=== PATIENT | female | born 1995 | race Caucasian/White ===

== ENCOUNTER 2018-05-12 10:30 | Emergency (ER) | payer OTHER ==
[2018-05-12 10:38] VITALS: BP 104/55
[2018-05-12] MEDS ORDERED: IBUPROFEN 600 MG TABLET PO ONE (10:45)
[2018-05-12] MEDS ORDERED: LIDOCAINE 2% VISCOUS SOLN 20 ML UDCUP PO ONE (10:45)
[2018-05-12] MEDS ORDERED: DEXAMETHASONE 4 MG TABLET PO ONE (10:48)
--- NOTE | 2018-05-12 10:51 | ER Document Report ---
ED ENT - General Chief Complaint: Sore Throat Stated Complaint: EAR PAIN Time Seen by Provider: 05/12/18 10:38 Mode of Arrival: Ambulatory Information source: Patient Notes: 22-year-old female presents to ED for the right-sided throat and ear pain. She also has swelling to her nasal mucosa with postnasal drainage. She said the pain started yesterday in her right ear and then has progressed down to her throat and right neck. The denies any fever. Patient is alert and oriented, speaking in full sentences, respirations regular and unlabored, and able to walk with a even steady gait. TRAVEL OUTSIDE OF THE [place] IN LAST 30 DAYS: No - HPI Patient complains to provider of: Ear problem, Throat problem Onset: Yesterday Onset/Duration: Gradual Quality of pain: Sharp, Other - Pressure Pain Level: 4 Context: Recent Illness Location of pain: Ears, Jaw, Nose, Sinus Associated symptoms: Ear pain, Runny nose, Sinus pain, Sinus drainage, Sore throat, Swollen glands Similar symptoms previously: No Recently seen / treated by doctor: No - Related Data Allergies/Adverse Reactions: No Known Allergies Allergy (Verified 05/12/18 10:31) Past Medical History - General Information source: Patient - Social History Smoking Status: Current Every Day Smoker Cigarette use (# per day): Yes - 2 cigarettes per day Chew tobacco use (# tins/day): No Smoking Education Provided: Yes - Minutes Frequency of alcohol use: Occasional Drug Abuse: None Lives with: Family Family History: Reviewed & Not Pertinent Patient has suicidal ideation: No Patient has homicidal ideation: No Pulmonary Medical History: Reports: Hx Asthma Renal/ Medical History: Reports: Hx Kidney Stones Psychiatric Medical History: Reports: Hx Anxiety Review of Systems - Review of Systems Constitutional: Recent illness. denies: Fever EENT: Ear pain, Sinus pressure, Sinus discharge, Throat pain Physical Exam - Vital signs Vitals: Temp Pulse Resp BP Pulse Ox 98.8 F 72 16 104/55 L 100 05/12/18 10:36 05/12/18 10:36 05/12/18 10:36 05/12/18 10:36 05/12/18 10:36 - HEENT Head: Normocephalic, Atraumatic Eyes: Normal Pupils: PERRL Ears: Normal External canal: Normal Tympanic membrane: Serous effusion Sinus: Normal Nasal: Swelling, Clear rhinorrhea Mouth/Lips: Normal Mucous membranes: Normal Pharynx: Erythema, Post nasal drainage, Tonsillar hypertrophy. No: Exudate, Peritonsillar abscess, Retropharyngeal abscess, Uvular edema, Potential airway comprom. Neck: Anterior cervical chain Course - Re-evaluation Re-evalutation: 05/12/18 22:11 Patient was treated with viscous lidocaine for her ear pain. She was treated with Decadron and ibuprofen as well as penicillin G for her strep throat. Patient was instructed to follow-up with her primary doctor. - Vital Signs Vital signs: Temp Pulse Resp BP Pulse Ox 98.8 F 72 16 104/55 L 100 05/12/18 10:36 05/12/18 10:36 05/12/18 10:36 05/12/18 10:36 05/12/18 10:36 Discharge - Discharge Clinical Impression: Strep pharyngitis, Otalgia, right ear Condition: Stable Disposition: HOME, SELF-CARE Instructions: Family Physicians / Practices, Use of Svki-Hol-Deyolgo Ibuprofen ([facility]) Additional Instructions: STREP THROAT: Your sore throat is due to the streptococcus germ (strep throat). Strep throat usually makes you feel quite ill with fever and aches, headache, swollen sore throat, and tender bumps under the angles of the jaw. Strep throat requires antibiotic treatment. Although the sore throat may go away by itself, complications such as rheumatic fever, kidney disease, or throat abscess can occur. We usually prescribe antibiotics by mouth. Be sure to take the medicine until it's gone. If you stop early, the strep may come back. If you are vomiting, are severely ill, or can't remember to take pills, we can give you an antibiotic shot. Take acetaminophen or ibuprofen for pain and fever. Sip frequent clear liquids, or use popsicles or ice chips. Anesthetic sprays or lozenges may help. Make sure the air in the room is not too dry. Avoid using decongestants or antihistamines. Call the doctor if there is no improvement in three days, or if you have difficulty breathing, increasing throat pain, high fever, rash, or frequent vomiting. STEROID MEDICATION: You have been given a medicine of the cortisone/steroid class. This medication is used to control inflammation or allergy. It is usually only given for a short period of time, until the acute process subsides. There are usually no side effects from short-term use of cortisone-like medications. Some persons feel an increased sense of well-being and are not sleepy at bedtime. Long-term use of cortisone medications is best avoided, unless required for a severe condition. If your condition does not remit, or relapses after the course of corticosteroid medication, you should consult your physician. Penicillins The antibiotic you have received is a member of the penicillin family. This is a very useful class of antibiotics. The particular type of antibiotic chosen for you was determined by the nature of your problem. Penicillins are absorbed best when taken on an empty stomach, and should be taken either a half hour before or two hours after a meal. Some newer medicines of the penicillin class are better taken with food -- if this is the case, the pharmacist will label the medicine to alert you. Penicillins usually have no side effects. However, allergy to penicillins is common. If you have had an allergic reaction to any drug of the penicillin family, you should never take any other penicillin. Notify your doctor at once if you develop hives, itching, swelling, faintness, or shortness of breath. Less serious side effects can include nausea or diarrhea. Salt and soda solution gargles 1 quart of water 1 tablespoon of salt 1 teaspoon of baking soda Mixed 3 ingredients together and boil for 1 minute Placed in a covered quart jar Use 1/2 ounce of cold solution to gargle 3 times a day FOLLOW-UP CARE: If you have been referred to a physician for follow-up care, call the physician s office for an appointment as you were instructed or within the next two days. If you experience worsening or a significant change in your symptoms, notify the physician immediately or return to the Emergency Department at any time for re-evaluation. Prescriptions: Prednisone [Deltasone 20 mg Tablet] 3 tab PO DAILY 2 Days tablet Forms: Smoking Cessation Education, Return to Work
[2018-05-12] MEDS ORDERED: PENICILLIN G BENZATHINE 1.2 MILLION UNIT/2 ML DISP.SYRIN IM ONE (11:18)
== END 2018-05-12 11:57 | disposition home or self-care (01) ==
LOC: ER 10:30
DX: J02.0 Streptococcal pharyngitis (principal); H92.01 Otalgia, right ear; R09.82 Postnasal drip; J34.89 Other specified disorders of nose and nasal sinuses; F17.210 Nicotine dependence, cigarettes, uncomplicated; J45.909 Unspecified asthma, uncomplicated
CPT/HCPCS: 99283; 96372; 87880; J3490; J0561

== ENCOUNTER 2018-05-26 12:27 | Emergency (ER) | payer OTHER ==
[2018-05-26 12:33] VITALS: BP 115/53
--- NOTE | 2018-05-26 12:43 | ER Document Report ---
HPI - HPI Patient complains to provider of: Left wrist injury Onset: Yesterday - 2:30 PM Pain Level: 5 Context: 23-year-old female hyperextended her left wrist while in kickball practice yesterday afternoon at 2:30 PM. Dorsal left wrist is swollen. Associated Symptoms: None Exacerbated by: Movement Relieved by: Denies Similar symptoms previously: No Recently seen / treated by doctor: No - ROS ROS below otherwise negative: Yes Systems Reviewed and Negative: Yes All other systems reviewed and negative - REPRODUCTIVE Reproductive: DENIES: : Past Medical History - General Information source: Patient - Social History Smoking Status: Never Smoker Frequency of alcohol use: None Drug Abuse: None Lives with: Family - Related to the need helga she was Family History: Reviewed & Not Pertinent Pulmonary Medical History: Reports: Hx Asthma Renal/ Medical History: Reports: Hx Kidney Stones. Denies: Hx Peritoneal Dialysis Psychiatric Medical History: Reports: Hx Anxiety Surgical Hx: Negative Vertical Provider Document - CONSTITUTIONAL Agree With Documented VS: Yes Exam Limitations: No Limitations - INFECTION CONTROL TRAVEL OUTSIDE OF THE [place] IN LAST 30 DAYS: No - MUSCULOSKELETAL/EXTREMETIES Musculoskeletal/Extremeties: Tender, Edema - dorsal left wrist, N/V intact, tender snuffbox - NEURO Level of Consciousness: Alert Motor/Sensory: No Motor Deficit, No Sensory Deficit Course - Re-evaluation Re-evalutation: 05/26/18 13:33 X-rays negative per radiologist. Patient did not tolerate the splint she wants it off. We did do a padded Davie wrap which is comfortable to her and she also wants a sling. She does not work. 05/26/18 13:33 - Vital Signs Vital signs: Temp Pulse Resp BP Pulse Ox 98.1 F 79 16 115/53 L 100 05/26/18 12:31 05/26/18 12:31 05/26/18 12:31 05/26/18 12:31 05/26/18 12:31 Procedures - Immobilization Left Wrist Time completed: 13:37 Pre-Proc Neuro Vasc Exam: Normal Immobilizer type: Davie wrap Performed by: PCT Post-Proc Neuro Vasc Exam: Normal Alignment checked and good: Yes Discharge - Discharge Clinical Impression: Left wrist sprain Condition: Good Disposition: HOME, SELF-CARE Instructions: Wrist Sprain ([facility]), Ibuprofen (General) ([facility]), Davie Wrap ([facility]) Additional Instructions: Padded Davie wrap for comfort Motrin Tylenol See orthopedic doctor if it does not feel normal in a week Prescriptions: Ibuprofen [Motrin 600 mg Tablet] 600 mg PO Q8HP PRN #30 tablet PRN Reason: Referrals: KALPANA CHAN MD [ACTIVE STAFF] - Follow up as needed
[2018-05-26] MEDS ORDERED: ACETAMINOPHEN 325 MG TABLET PO ONE (13:08)
[2018-05-26] MEDS ORDERED: IBUPROFEN 600 MG TABLET PO ONE (13:08)
--- NOTE | 2018-05-26 13:27 | RADIOLOGY REPORT (SQ) ---
EXAM DESCRIPTION: WRIST LEFT 3 VIEWS COMPLETED DATE/TIME: 05/26/2018 12:51 pm REASON FOR STUDY: injury wrist bent backwards COMPARISON: None. NUMBER OF VIEWS: Four views. TECHNIQUE: AP, lateral, oblique, and scaphoid radiographic images acquired of the left wrist. LIMITATIONS: None. FINDINGS: MINERALIZATION: Normal. BONES: No acute fracture or dislocation. No worrisome bone lesions. Normal alignment. SOFT TISSUES: No soft tissue swelling. No foreign body. OTHER: No other significant finding. IMPRESSION: NEGATIVE STUDY OF THE LEFT WRIST. NO RADIOGRAPHIC EVIDENCE OF ACUTE INJURY. TECHNICAL DOCUMENTATION: JOB ID: [id number] [employer]- All Rights Reserved Reading location - IP/workstation name: [email or web address]
== END 2018-05-26 13:48 | disposition home or self-care (01) ==
LOC: ER 12:27
DX: S63.502A Unspecified sprain of left wrist, initial encounter (principal); X58.XXXA Exposure to other specified factors, initial encounter; Y93.6A Activity, physical games generally associated with school recess, summer camp and children; J45.909 Unspecified asthma, uncomplicated
CPT/HCPCS: 99283; 73110; L3908

== ENCOUNTER 2018-10-25 11:37 | Emergency (ER) | payer OTHER ==
[2018-10-25] MEDS ORDERED: DEXAMETHASONE 4 MG TABLET PO ONE (11:56)
[2018-10-25] MEDS ORDERED: LIDOCAINE 2% VISCOUS SOLN 20 ML UDCUP PO ONE (11:56)
[2018-10-25] MEDS ORDERED: IBUPROFEN 800 MG TABLET PO ONE (11:56)
--- NOTE | 2018-10-25 12:52 | ER Document Report ---
HPI - HPI Patient complains to provider of: Sore throat ear pain Time Seen by Provider: 10/25/18 11:47 Onset: Yesterday Onset/Duration: Gradual Quality of pain: Achy Pain Level: 1 Context: Patient presents complaining of sore throat and ear pain that started yesterday. Patient reports chills but denies checking for fever. Patient does report sick contacts in her household. Associated Symptoms: Chills, Earache, Sore throat. denies: Nonproductive cough , Fever, Vomiting Exacerbated by: Denies Relieved by: Denies Similar symptoms previously: Yes Recently seen / treated by doctor: No - ROS ROS below otherwise negative: Yes Systems Reviewed and Negative: Yes All other systems reviewed and negative - CONSTITUTIONAL Constitutional: REPORTS: Chills. DENIES: Fever - EENT EENT: REPORTS: Sore Throat, Ear Pain - NEURO Neurology: DENIES: Headache - RESPIRATORY Respiratory: DENIES: Coughing - GASTROINTESTINAL Gastrointestinal: DENIES: Nausea, Patient vomiting - REPRODUCTIVE Reproductive: DENIES: : - DERM Skin Color: Normal Skin Problems: None Past Medical History - General Information source: Patient - Social History Smoking Status: Never Smoker Chew tobacco use (# tins/day): No Drug Abuse: None Occupation: None Lives with: Family Family History: Reviewed & Not Pertinent Patient has suicidal ideation: No Patient has homicidal ideation: No Pulmonary Medical History: Reports: Hx Asthma Renal/ Medical History: Reports: Hx Kidney Stones. Denies: Hx Peritoneal Dialysis Psychiatric Medical History: Reports: Hx Anxiety Surgical Hx: Negative Vertical Provider Document - CONSTITUTIONAL Agree With Documented VS: Yes Exam Limitations: No Limitations General Appearance: WD/WN, No Apparent Distress - INFECTION CONTROL TRAVEL OUTSIDE OF THE [place] IN LAST 30 DAYS: No - HEENT HEENT: Atraumatic, Normocephalic, Pharyngeal Tenderness, Pharyngeal Erythema. negative: Pharyngeal Exudate - NECK Neck: Lymphadenopathy-Left, Lymphadenopathy-Right - RESPIRATORY Respiratory: Breath Sounds Normal, No Respiratory Distress - CARDIOVASCULAR Cardiovascular: Regular Rate, Regular Rhythm, No Murmur - BACK Back: Normal Inspection - MUSCULOSKELETAL/EXTREMETIES Musculoskeletal/Extremeties: JACK ESTES - NEURO Level of Consciousness: Awake, Alert, Appropriate Motor/Sensory: No Motor Deficit - DERM Integumentary: Warm, Dry, No Rash Course - Vital Signs Vital signs: Temp Pulse Resp BP Pulse Ox 98.4 F 89 16 113/64 99 10/25/18 11:41 10/25/18 11:41 10/25/18 11:41 10/25/18 11:41 10/25/18 11:41 - Laboratory Laboratory results interpreted by me: 10/25/18 12:51 Labs- Entire Visit 10/25/18 11:55 Group A Strep Rapid NEGATIVE Discharge - Discharge Clinical Impression: Sore throat (viral), Otalgia of both ears Condition: Stable Disposition: HOME, SELF-CARE Instructions: Acetaminophen, Sore Throat ([facility]) Additional Instructions: Return immediately for any new or worsening symptoms Followup with your primary care provider, call tomorrow to make a followup appointment Throat culture is pending, we will call if you need any different treatment Prescriptions: Naproxen [Naprosyn 250 Nmg Tablet] 1 tab PO BID #14 tablet Referrals: JENNIFER AHMADI MD [Primary Care Provider] - Follow up as needed
[2018-10-25 13:21] VITALS: BP 120/72
== END 2018-10-25 13:15 | disposition home or self-care (01) ==
LOC: ER 11:37
DX: J02.8 Acute pharyngitis due to other specified organisms (principal); B97.89 Other viral agents as the cause of diseases classified elsewhere; H92.03 Otalgia, bilateral; R68.83 Chills (without fever); R59.0 Localized enlarged lymph nodes; J45.909 Unspecified asthma, uncomplicated
CPT/HCPCS: 99283; 87070; 87880; J3490